=== PATIENT | male | born 1950 | race Caucasian/White ===

== ENCOUNTER 2018-01-04 14:22 | Emergency (ER) | payer MEDICARE, OTHER ==
[~2018-01-04] VITALS: Ht 177.8 cm; Wt 96.6 kg
[2018-01-04] MEDS ORDERED: NORVASC5 MG PO (14:42)
[2018-01-04] MEDS ORDERED: ZOCOR20 MG PO (14:42)
[2018-01-04 14:48] LABS: ABSOLUTE BASOPHILS 0.1 thou/uL (0.0-0.2); ABSOLUTE EOSINOPHILS 0.5 thou/uL (0.0-0.7); ABSOLUTE LYMPHOCYTES 1.6 thou/uL (0.8-5.3); ABSOLUTE MONOCYTES 0.8 thou/uL (0.0-1.2); ABSOLUTE NEUTROPHILS 4.7 thou/uL (1.6-8.1); BASOPHILS 1.1 %; HEMATOCRIT 44.5 % (42.0-52.0); HEMOGLOBIN 15.3 gm/dL (14.0-18.0); LYMPHOCYTES 20.6 %; MCH 32.8 pg (26.0-34.0); MCHC 34.4 g/dL (28.0-37.0); MCV 95.3 fL (80.0-100.0); MONOCYTES 10.3 %; MPV 8.4 fl. (7.2-11.1); NUCLEATED RBCS 0 /100WBC; PLATELET COUNT* 267 thou/uL (150-400); RBC 4.67 mil/uL (4.50-6.00); WBC 7.6 thou/uL (4.0-11.0)
[2018-01-04 14:55] LABS: ANION GAP 7 mmol/L (7-16); BUN 11 mg/dL (7-18); CALCIUM 8.4 mg/dL (8.5-10.1); CHLORIDE 106 mmol/L (98-107); CO2 28 mmol/L (21-32); GLUCOSE 105 mg/dL (70-99); POTASSIUM 3.7 mmol/L (3.5-5.1); SODIUM 141 mmol/L (136-145)
[2018-01-04 14:56] LABS: APTT 27.6 Seconds (25.0-31.3); PROTIME 10.2 Seconds (9.20-11.50)
[2018-01-04 15:01] LABS: ALBUMIN 3.6 g/dL (3.4-5.0); ALKALINE PHOSPHATASE 87 U/L (46-116); SGOT 23 U/L (15-37); SGPT 38 U/L (30-65); TOTAL BILIRUBIN 0.2 mg/dL (<0.1-1.0); TOTAL PROTEIN 7.3 g/dL (6.4-8.2); TROPONIN-I LEVEL <0.06 ng/mL (<0.06)
[2018-01-04 15:54] VITALS: BP 146/86
[2018-01-05] MEDS ORDERED: ASPIR 8181 MG PO (13:45)
[2018-01-05] MEDS ORDERED: ACYCLOVIR 400400 MG PO (14:52)
[2018-01-05] MEDS ORDERED: PREDNISONE 20 M20 M1 PO (14:52)
--- NOTE | 2018-01-06 12:51 | EKG ---
[place] [address] ELECTROCARDIOGRAM REPORT Name: RESHMA POZO Room: [facility]#: [id number] Admission: 01/04/18 Attend Phys: Discharge: 01/04/18 Date of : 50 Report #: [id number] THIS REPORT FOR: //name// [facility] ED Test Date: 2018-01-04 Test Time: 14:42:09 Pat Name: RESHMA POZO Department: Room: Gender: M Vessel [employer] Se[employer]: REYNALDO : 1950 Requested By: Kranthi Trejo Order Number: [id number] MD: Felix Hernandez Measurements Intervals [place] Rate: 67 P: 37 MT: 191 QRS: -23 QRSD: 113 T: 64 QT: 416 QTc: 439 Interpretive Statements Sinus rhythm Incomplete right bundle branch block Baseline wander in lead(s) V6 No previous ECG available for comparison Electronically Signed On 01-06-2018 12:51:33 CDT by Felix Hernandez [email or web address] <ELECTRONICALLY SIGNED> By: Felix Hernandez MD, [facility] 01/06/18 1251 [id number] 144 Felix Hernandez MD, FACC /EPI
== END 2018-01-04 16:01 | disposition home or self-care (01) ==
LOC: M.ERS 14:22
PROVIDERS: Family Medicine
DX: R22.0 Localized swelling, mass and lump, head (principal); R47.81 Slurred speech; I10 Essential (primary) hypertension; E78.00 Pure hypercholesterolemia, unspecified

== ENCOUNTER 2018-01-05 13:40 | Emergency (ER) | payer MEDICARE, OTHER ==
[~2018-01-05] VITALS: Ht 177.8 cm; Wt 90.7 kg
[~2018-01-05 13:40] MED LIST: NORVASC5 MG PO; ZOCOR20 MG PO
[2018-01-05] MEDS ORDERED: ASPIR 8181 MG PO (13:45)
[2018-01-05 14:01] LABS: ABSOLUTE BASOPHILS 0.1 thou/uL (0.0-0.2); ABSOLUTE EOSINOPHILS 0.1 thou/uL (0.0-0.7); ABSOLUTE LYMPHOCYTES 1.9 thou/uL (0.8-5.3); ABSOLUTE MONOCYTES 1.4 thou/uL (0.0-1.2); ABSOLUTE NEUTROPHILS 12.2 thou/uL (1.6-8.1); BASOPHILS 0.9 %; EOSINOPHILS 0.6 %; HEMATOCRIT 44.1 % (42.0-52.0); LYMPHOCYTES 12.3 %; MCH 32.4 pg (26.0-34.0); MCV 95.5 fL (80.0-100.0); MPV 8.7 fl. (7.2-11.1); NUCLEATED RBCS 0 /100WBC; PLATELET COUNT* 270 thou/uL (150-400); POLYS 77.2 %; RBC 4.61 mil/uL (4.50-6.00); RDW-CV 12.8 % (10.5-14.5); WBC 15.8 thou/uL (4.0-11.0)
[2018-01-05 14:16] LABS: ANION GAP 7 mmol/L (7-16); BUN 10 mg/dL (7-18); CALCIUM 8.6 mg/dL (8.5-10.1); CHLORIDE 108 mmol/L (98-107); CO2 27 mmol/L (21-32); GLUCOSE 95 mg/dL (70-99); POTASSIUM 3.6 mmol/L (3.5-5.1); SODIUM 142 mmol/L (136-145)
[2018-01-05 14:22] LABS: ALBUMIN 3.6 g/dL (3.4-5.0); ALKALINE PHOSPHATASE 87 U/L (46-116); SGOT 19 U/L (15-37); SGPT 37 U/L (30-65); TOTAL BILIRUBIN 0.2 mg/dL (<0.1-1.0); TOTAL PROTEIN 7.4 g/dL (6.4-8.2); TROPONIN-I LEVEL <0.06 ng/mL (<0.06)
[2018-01-05 14:22] LABS: APTT 26.4 Seconds (25.0-31.3); INR 1.1; PROTIME 10.4 Seconds (9.20-11.50)
[2018-01-05] MEDS ORDERED: ACYCLOVIR 400400 MG PO (14:52)
[2018-01-05] MEDS ORDERED: PREDNISONE 20 M20 M1 PO (14:52)
[2018-01-05 15:08] VITALS: BP 155/96
--- NOTE | 2018-01-06 13:00 | EKG ---
[place] [address] ELECTROCARDIOGRAM REPORT Name: RESHMA POZO Room: [facility]#: [id number] Admission: 01/05/18 Attend Phys: Discharge: 01/05/18 Date of : 50 Report #: [id number] THIS REPORT FOR: //name// [facility] ED Test Date: 2018-01-05 Test Time: 13:46:38 Pat Name: RESHMA BENSONSHEKHAR Department: Room: Gender: M Electrical Subcontractor: Charleen BISHOP : 1950 Requested By: Kranthi Trejo Order Number: [id number] MD: Felix Hernandez Measurements Intervals [place] Rate: 72 P: 48 SD: 191 QRS: -22 QRSD: 101 T: 53 QT: 389 QTc: 426 Interpretive Statements Sinus rhythm Borderline left axis deviation Abnormal R-wave progression, early transition No previous ECG available for comparison Electronically Signed On 01-06-2018 12:59:58 CDT by Felix Hernandez [email or web address] <ELECTRONICALLY SIGNED> By: Felix Hernandez MD, [facility] 01/06/18 1259 D: [id number] Felix Hernandez MD, FACC /EPI
== END 2018-01-05 15:09 | disposition home or self-care (01) ==
LOC: M.ERS 13:40
PROVIDERS: Family Medicine
DX: G51.0 Bell's palsy (principal); I10 Essential (primary) hypertension; E78.00 Pure hypercholesterolemia, unspecified